=== PATIENT | male | born 1980 | race Two or more races ===

== ENCOUNTER 2025-07-09 13:24 | Emergency (ER) | payer OTHER ==
[~2025-07-09] VITALS: Ht 172.7 cm; Wt 90.7 kg
[2025-07-09 14:01] VITALS: BP 127/81; O2SAT 99
[2025-07-09] MEDS ORDERED: FAMOTIDINE/PF 20 MG/2 ML VIAL ONE (15:42)
[2025-07-09] MEDS ORDERED: 0.9 % SODIUM CHLORIDE 500 ML IV SCH (15:45)
[2025-07-09] MEDS ORDERED: FAMOTIDINE/PF 20 MG/2 ML VIAL IV ONE (15:45)
[2025-07-09] MEDS ORDERED: ASPIRIN 325 MG TABLET PO ONE (15:45)
[2025-07-09 18:20] LABS: BASO % 0.4 % (0.1-1.2); EOS # 0.05 (0.04-0.54); EOS % 0.4 % (0.7-7.0); LYMPH # 2.36 (1.18-3.74); LYMPH % 18.6 % (19.3-53.1); MEAN PLATELET VOLUME 9.20 fl (9.4-12.4); MONO # 0.95 (0.24-0.82); MONO % 7.5 % (4.7-12.5); NEUT # 9.23 (1.56-6.13); NEUT % 72.6 % (34.0-71.1); RED CELL DISTRIBUTION WIDTH 11.2 % (11.6-14.4)
[2025-07-09 19:07] LABS: ALT/SGPT 69 U/L (12-78); AST/SGOT 61 U/L (15-37); BILIRUBIN TOTAL 0.76 mg/dL (0.3-1.2); BUN CREA RATIO 12 (7.0-25.0); CREATININE SERUM 1.31 mg/dL (0.70-1.30); GFR 58.91; GLOBULINA 4.9 G/DL (2.4-3.5); GLUCOSE FASTING 96 mg/dL (65-100); OSMOLALITY SERUM 279 MOSM/KG (275-295)
[2025-07-09 19:30] LABS: CKMB < 1.0 NG/ML (0.5-3.6)
[2025-07-09] MEDS ORDERED: PROTONIX40 MG PO (21:17)
[2025-07-09] MEDS ORDERED: PEPCID AC20 MG PO (21:17)
== END 2025-07-09 22:21 | disposition home or self-care (01) ==
LOC: ER 13:24
PROVIDERS: Student in an Organized Health Care Education/Training Program
DX: K21.9 Gastro-esophageal reflux disease without esophagitis (principal); R07.89 Other chest pain